=== PATIENT | male | born 1935 | race Caucasian/White ===

== ENCOUNTER 2019-01-09 10:21 | Day surgery (SDC) | payer OTHER, BC ==
[2019-01-08 12:17] VITALS: BMI 38.2
[2019-01-09] MEDS ORDERED: ONDANSETRON 4 MG/2 ML VIAL IVPUSH PRN (12:02)
[2019-01-09] MEDS ORDERED: LACTATED RINGERS SOLUTION 1,000 ML IV SCH (12:15)
[2019-01-09] MEDS ORDERED: PROPOFOL 20 ML ONE ×2 (12:27)
[2019-01-09] MEDS ORDERED: MIDAZOLAM HCL 2 MG/2 ML SINGLE DOSE VIAL ONE (12:27)
[2019-01-09] MEDS ORDERED: BUPIVACAINE 0.75% IN DEXTROSE/PF 2ML AMPULE NR ONE (12:34)
--- NOTE | 2019-01-09 13:11 | OP ---
Operative Note - Note: Operative Date: 01/09/19 Pre-Operative Diagnosis: Bladder tumor Operation: TURBT Findings: 2.5 cm sessile post bladder wall tumor Post-Operative Diagnosis: Same as Pre-op Surgeon: Kayden Bryan MD. Anesthesia: Spinal Specimens Removed: Bladder tumor Operative Report Dictated: Yes
[2019-01-09] MEDS ORDERED: sitaGLIPtin PHOSPHATE 50 MG TABLET PO SCH (16:30)
[2019-01-09] MEDS ORDERED: metFORMIN HCL 500 MG TABLET (FP) PO SCH (16:30)
[2019-01-09 17:27] VITALS: BP 151/79; PULSE 73; TEMP 97.6
[2019-01-09] MEDS ORDERED: ROSUVASTATIN CA 10 MG TABLET (FP) PO SCH (22:00)
[2019-01-09] MEDS ORDERED: PATIENT'S OWN MEDICATION (NON-FORMULARY) (Sitagliptin Phos/Metformin Hcl [Janumet 50-1,000 PO SCH (22:00)
[2019-01-09] MEDS ORDERED: OMEGA-3 ACID ETHYL ESTERS (FATTY-ACIDS) 1 GM CAPSULE (FP) PO SCH (22:00)
[2019-01-10] MEDS ORDERED: TAMSULOSIN HCL 0.4 MG CAP PO SCH (08:30)
--- NOTE | 2019-01-10 08:54 | OP ---
DATE OF OPERATION: 01/09/2019 PREOPERATIVE DIAGNOSIS: Bladder tumor. POSTOPERATIVE DIAGNOSIS: Bladder tumor. PROCEDURE PERFORMED: Transurethral resection of bladder tumor. SURGEON: Kayden Bryan MD HISTORY: This is an 83-year-old gentleman with a history of prior bladder tumor, also followed for obstructive and irritative voiding symptoms. On surveillance cystoscopy, he was found to have a posterior wall approximately 2.5-cm sessile area of bladder tumor recurrence. After discussing treatment options, the patient elected to undergo the above-stated procedure. The risks, benefits and alternative treatments were discussed in detail. All questions were answered. DESCRIPTION OF PROCEDURE: The patient was brought to the operating room. A spinal anesthetic was administered. The patient was transferred to the dorsal lithotomy position, prepped and draped in the standard sterile fashion. Intravenous antibiotics were given. A time-out was performed. At this time a 26-Upper Sorbian sheath was placed into the bladder under direct vision. The prostate was occlusive and approximately 4 cm. The bladder was somewhat erythematous and inflamed in appearance. The bladder tumor was noted towards the right side of the posterior bladder wall, adjacent to the orifice. At this time, using the resecting loop, the lesion was resected and 2 pieces of specimen were given off. However, the majority of the lesion was fulgurated using the fulguration current. There was no evidence of active bleeding. The orifice was not clearly identified; however, I did not feel that the orifice was compromised. There was no evidence of active bleeding. The bladder was drained. All instruments were removed. The patient was brought to the recovery room in stable and satisfactory condition. KAYDEN BRYAN M.D. JENNIFER/[id number]
[2019-01-10] MEDS ORDERED: MULTIVITAMINS (DAILY MVI) TABLET (FP) PO SCH (10:00)
[2019-01-10] MEDS ORDERED: PATIENT'S OWN MEDICATION (NON-FORMULARY) (Canagliflozin [Invokana] 100 MG) PO SCH (10:00)
[2019-01-10] MEDS ORDERED: ALLOPURINOL 100 MG TABLET (FP) PO SCH (10:00)
[2019-01-10] MEDS ORDERED: PANTOPRAZOLE 40 MG TABLET (FP) PO SCH (10:00)
[2019-01-10] MEDS ORDERED: NEBIVOLOL 10 MG TABLET (FP) PO SCH (10:00)
[2019-01-10] MEDS ORDERED: FENOFIBRIC ACID 135 MG CAP PO SCH (10:00)
[2019-01-10] MEDS ORDERED: LACTOBACILLUS ACIDOPHILUS 1 TABLET PO SCH (10:00)
[2019-01-10] MEDS ORDERED: ASPIRIN 81 MG CHEWABLE TABLETS PO SCH (10:00)
[2019-01-10] MEDS ORDERED: PARoxetine HCL 30 MG TABLET PO SCH (10:00)
[2019-01-10] MEDS ORDERED: VALSARTAN 160 MG TABLET (UD) PO SCH (10:00)
[2019-01-10] MEDS ORDERED: amLODIPine BESYLATE 5 MG TABLET (FP) PO SCH (10:00)
--- NOTE | 2019-01-11 10:48 | PATH ---
Surgical Pathology Report Patient Name: HUNTER SCHMITT [facility]. Rec. #: [id number] /Age/Gender: 1935 (Age: 83) / M Account: [id number] Location: [facility] SURGICAL Taken: 01/09/2019 Received: 01/10/2019 Reported: 01/11/2019 Physicians: Kayden Bryan M.D. 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 Electronically Signed Bar Hernandez M.D. Gross Description Received in formalin labeled "bladder tumor," are 2 cosby soft tissue fragments averaging 0.7 cm in greatest dimension. The specimens are submitted in toto in one cassette. /01/10/2019 saudi/01/10/2019
== END 2019-01-09 17:10 | disposition home or self-care (01) ==
LOC: JASU-SURG 10:21
PROVIDERS: ATTEND Urology
PROC: 0T5B8ZZ Destruction of Bladder, Via Natural or Artificial Opening Endoscopic (ICD-10-PCS; principal; 2019-01-09 12:00)
DX: D41.4 Neoplasm of uncertain behavior of bladder (principal); N30.20 Other chronic cystitis without hematuria; Z85.51 Personal history of malignant neoplasm of bladder
CPT/HCPCS: 82962; 88305-TC; 94760